=== PATIENT | male | born 1985 | race Caucasian/White ===

== ENCOUNTER 2019-04-23 21:13 | Emergency (ER) | payer OTHER, MEDICAID, SELFPAY ==
[2019-04-23 21:12] VITALS: BMI 22.4
[2019-04-23 21:13] VITALS: BP 115/65; PULSE 77; RESP 18; TEMP 36.1; O2SAT 100
--- NOTE | 2019-04-23 21:31 | ED.PSYCH ---
HPI - Psych <Kenya Titus MD - Last Filed: 05/01/19 03:33> General Chief Complaint: Psychiatric Symptoms Stated Complaint: SI voluntary Time Seen by Provider: 04/23/19 21:18 Source: patient Mode of arrival: ambulatory Limitations: no limitations History of Present Illness HPI Narrative: Patient comes emergency department complaining of feeling suicidal for the past 3 days, due to relationship problems with his girlfriend, among other life stresses. Patient states that he has not attempted suicide this time around, but that he has had a plan, which was to jump [place] overpass, but decided to come here to get help instead. Patient has a history of depression and suicidal attempts previously, and has been admitted to inpatient psychiatric facilities in the past. States most recently, he was admitted down in [place]. Patient states that was last month. Patient denies any hallucinations or homicidal ideation. He states he currently is taking iron and Protonix, as well as Seroquel. No recent dose changes. No recent illnesses. No other complaints at this time. Patient denies use of alcohol or drugs today. He states he used marijuana and beer yesterday, and also chews tobacco. He denies doing any other drugs. Related Data Home Medications Medication Instructions Recorded Confirmed ferrous sulfate [FeroSul] 325 mg PO DAILY 04/24/19 04/24/19 pantoprazole 40 mg PO BID 04/24/19 04/24/19 quetiapine 100 mg PO QPM 04/24/19 04/24/19 Allergies Allergy/AdvReac Type Severity Reaction Status Date / Time No Known Drug Allergies Allergy Verified 04/23/19 21:24 Review of Systems <Kenya Titus MD - Last Filed: 05/01/19 03:33> Review of Systems ROS Unobtainable: All systems reviewed & are unremarkable except as noted in HPI and below Constitutional Constitutional: Denies chills, Denies fatigue, Denies fever(s), Denies frequent falls, Denies lethargy and Denies weakness Eyes Eyes: Denies change in vision, Denies eye discharge, Denies irritation and Denies loss of vision ENT Ears, Nose, Mouth, and Throat: Denies change in voice, Denies dizziness, Denies neck pain, Denies sore throat and Denies throat swelling Cardiovascular Cardiovascular: Denies chest pain, Denies irregular heart rhythm, Denies lightheadedness, Denies palpitations, Denies dyspnea, Denies dyspnea on exertion and Denies orthopnea Respiratory Respiratory: Denies cough, Denies dyspnea, Denies dyspnea on exertion and Denies wheezing Gastrointestinal Gastrointestinal: Denies abdominal pain, Denies change in bowel habits, Denies diarrhea, Denies nausea and Denies vomiting Genitourinary Genitourinary: Denies hematuria, Denies flank pain, Denies urinary incontinence and Denies urinary urgency Musculoskeletal Musculoskeletal: Denies back pain, Denies muscle weakness, Denies neck pain, Denies numbness and Denies tingling Integumentary/Breasts Skin/Breast: Denies pruritus, Denies erythema, Denies rash and Denies wounds Neurologic Neurologic: Denies behavioral changes, Denies confusion, Denies dizziness, Denies frequent falls, Denies loss of vision, Denies numbness, Denies tingling and Denies weakness Psychiatric Psychiatric: Denies anxiety, Denies behavioral changes, Denies confusion, Reports depression, Denies homicidal ideation and Reports suicidal ideation Endocrine Endocrine: Denies fatigue, Denies flushing and Denies palpitations Hematologic/Lymphatic Hematologic/Lymphatic: Denies easy bruising Allergic/Immunologic Allergic/Immunologic: Denies urticaria, Denies throat swelling and Denies wheezing PFSH <Kenya Titus MD - Last Filed: 05/01/19 03:33> Medical History Depression (Acute) Suicide attempt (Acute) Surgical History No pertinent past surgical history (Acute) Social History Smoking Status: Current every day smoker Social History Smoking Status: Current every day smoker Exam <Kenya Titus MD - Last Filed: 05/01/19 03:33> Initial Vital Signs Initial Vital Signs: Vital Signs Temperature 97.0 F L 04/23/19 21:13 Pulse Rate 77 04/23/19 21:13 Respiratory Rate 18 04/23/19 21:13 Blood Pressure 115/65 04/23/19 21:13 Pulse Oximetry 100 04/23/19 21:13 Const General: cooperative and well developed Nutritional Appearance: well nourished Orientation: alert, awake, oriented x3 and not confused [facility] Head: normocephalic and atraumatic Ears: external ears normal Nose: external nose normal and No nasal discharge Face and sinus: face symmetric and No dry mucous membranes Mouth: oral mucosae normal and moist mucous membranes Teeth and gingiva: dentition normal Eyes General: appearance normal, both eyes and all related structures Eyelids: eyelids normal Conjunctivae: conjunctivae normal Sclera: sclerae normal Pupils: PERRL EOM: EOM intact bilaterally Neck Neck: normal visual inspection, trachea midline, No lymphadenopathy, No midline deformity and No JVD Lymphatic: No lymphedema Chest Chest: normal inspection of the chest Resp Effort & Inspection: normal respiratory effort, able to speak in complete sentences, no respiratory distress and no use of accessory muscles Auscultation: clear to auscultation bilaterally, no rales, no rhonchi and no wheezes Cardio Rate: regular rate Rhythm: regular rhythm Heart Sounds: no click, no gallops, no murmurs and no rubs Pulses: normal peripheral pulses GI Inspection: non-distended Palpation: soft, no hepatosplenomegaly, No guarding, No pulsatile mass and No tender Auscultation: normal bowel sounds Back/Spine/Pelvis Back: No CVA tenderness Cervical Spine: cervical ROM normal and No pain with cervical ROM Thoracic/Lumbar Spine: thoracic and lumbar spine normal to inspection Skin General: no rashes or lesions noted, No jaundice and No petechiae Neuro General: alert, oriented x3, gait normal and no focal motor deficits Speech: speech normal Extrem General: full ROM, no clubbing, cyanosis or edema, no pedal edema and no calf tenderness Psych Appearance: well kempt Mental Status: mental status grossly normal Attitude: cooperative Thought Content: normal and suicidality Judgment: judgment good <Ta Segura DO - Last Filed: 04/24/19 16:33> Initial Vital Signs Initial Vital Signs: Vital Signs Temperature 97.0 F L 04/23/19 21:13 Pulse Rate 77 04/23/19 21:13 Respiratory Rate 18 04/23/19 21:13 Blood Pressure 115/65 04/23/19 21:13 Pulse Oximetry 100 04/23/19 21:13 Course <Kenya Titus MD - Last Filed: 05/01/19 03:33> Course Course Narrative: I discussed with the patient that he would need to wait in the emergency department until our social work assistant arrives tomorrow. However, I have initiated the medical clearance labs for the patient, including CBC, CMP, drug screen, alcohol level, and TSH. These were done, and were unremarkable, other than positive drug screen for marijuana. Patient medically clear for mental health evaluation. At this time, he is awaiting arrival of social work assistant for evaluation, as he is voluntary and this not meet criteria to be evaluated by the DCR. The patient will be signed out to Dr. Ta Segura at change of shift, pending social work evaluation and final disposition. Orders Ordered: Discontinued Medications Ferrous Sulfate (Ferrous Sulfate) 325 mg PO NOW ONE Stop: 04/24/19 12:10 Last Admin: 04/24/19 12:28 Dose: 325 mg Documented by: CHARLETTE Lorazepam (Ativan) 1 mg PO NOW ONE Stop: 04/24/19 17:08 Last Admin: 04/24/19 17:10 Dose: 1 mg Documented by: SINGH Pantoprazole Sodium (Protonix) 40 mg PO NOW ONE Stop: 04/24/19 12:16 Last Admin: 04/24/19 12:28 Dose: 40 mg Documented by: CHARLETTE Vital Signs Vital signs: Vital Signs - 8 hr 04/24/19 09:50 04/24/19 13:54 Pulse Rate 84 84 Respiratory Rate 16 16 Blood Pressure [Right Arm] 99/60 115/64 Pulse Oximetry 100 100 <Ta Segura DO - Last Filed: 04/24/19 16:33> Orders Ordered: Discontinued Medications Ferrous Sulfate (Ferrous Sulfate) 325 mg PO NOW ONE Stop: 04/24/19 12:10 Last Admin: 04/24/19 12:28 Dose: 325 mg Documented by: CHARLETTE Lorazepam (Ativan) 1 mg PO NOW ONE Stop: 04/24/19 17:08 Last Admin: 04/24/19 17:10 Dose: 1 mg Documented by: SINGH Pantoprazole Sodium (Protonix) 40 mg PO NOW ONE Stop: 04/24/19 12:16 Last Admin: 04/24/19 12:28 Dose: 40 mg Documented by: CHARLETTE Vital Signs Vital signs: Vital Signs - 8 hr 04/24/19 09:50 04/24/19 13:54 Pulse Rate 84 84 Respiratory Rate 16 16 Blood Pressure [Right Arm] 99/60 115/64 Pulse Oximetry 100 100 MDM - Psych <Kenya Titus MD - Last Filed: 05/01/19 03:33> Medical Records Attestation: I reviewed the patient's medical records. Lab Data Attestation: I reviewed the patient's lab results. Result diagrams: 04/23/19 21:45 04/23/19 21:45 Labs: Lab Results 04/23/19 04/23/19 04/23/19 Range/Units 21:45 21:45 21:45 WBC 9.5 (4.5-11.0) X10^3/uL RBC 4.29 L (4.5-5.9) X10^6/uL Hgb 9.5 L (13.5-17.5) g/dL Hct 29.6 L (41-53) % MCV 68.9 L (80-100) fL MCH 22.0 L (26-34) PG MCHC 32.0 (30-36) % RDW 20.7 H (11.6-14.8) % Plt Count 397 (150-400) X10^3/uL Neut % (Auto) 60.0 (50-75) % Lymph % (Auto) 26.3 (25-40) % Coffee % (Auto) 8.8 (3-14) % Eos % (Auto) 3.5 (2-4) % Baso % (Auto) 1.4 (0-2) % Neut # (Auto) 5700 (8458-1046) /uL Lymph # (Auto) 2500 (7113-2003) /uL Coffee # (Auto) 800 (0-900) /uL Eos # (Auto) 300 (0-450) /uL Baso # (Auto) 100 (0-100) /uL RBC Morphology See below Hypochromasia 1+ H Anisocytosis 3+ H Microcytosis 1+ H Sodium 138 (137-145) mmol/L Potassium 4.3 (3.4-5.1) mmol/L Chloride 103 (98-107) mmol/L Carbon Dioxide 26 (22-32) mmol/L BUN 19 (9-20) mg/dL Creatinine 0.90 (0.66-1.25) mg/dL Estimated GFR > 60.0 (>60) mL/min BUN/Creatinine Ratio 21.1 (6-22) Glucose 93 (70-100) mg/dL Calcium 9.2 (8.4-10.2) mg/dL Total Bilirubin 0.3 (0.2-1.3) mg/dL AST 21 (17-59) IU/L ALT 16 L (21-72) IU/L Alkaline Phosphatase 52 (38-126) U/L Total Protein 6.9 (6.3-8.2) g/dL Albumin 4.0 (3.5-5.0) g/dL Globulin 2.9 (1.7-4.1) g/dL Albumin/Globulin Ratio 1.4 (1.0-2.8) TSH 1.30 (0.47-4.68) uIU/mL Urine Opiates Screen (Negative) Ur Oxycodone Screen (Negative) Urine Methadone Screen (Negative) Ur Barbiturates Screen (Negative) U Tricyclic Antidepress (Negative) Ur Phencyclidine Scrn (Negative) Ur Amphetamines Screen (Negative) U Methamphetamines Scrn (Negative) Ur MDMA Scrn (Ecstasy) (Negative) U Benzodiazepines Scrn (Negative) Urine Cocaine Screen (Negative) U Marijuana (THC) Screen (Negative) Ethyl Alcohol < 10 ( - 10) mg/dL 04/23/19 Range/Units 22:05 WBC (4.5-11.0) X10^3/uL RBC (4.5-5.9) X10^6/uL Hgb (13.5-17.5) g/dL Hct (41-53) % MCV (80-100) fL MCH (26-34) PG MCHC (30-36) % RDW (11.6-14.8) % Plt Count (150-400) X10^3/uL Neut % (Auto) (50-75) % Lymph % (Auto) (25-40) % Coffee % (Auto) (3-14) % Eos % (Auto) (2-4) % Baso % (Auto) (0-2) % Neut # (Auto) (9659-4277) /uL Lymph # (Auto) (1575-6183) /uL Coffee # (Auto) (0-900) /uL Eos # (Auto) (0-450) /uL Baso # (Auto) (0-100) /uL RBC Morphology Hypochromasia Anisocytosis Microcytosis Sodium (137-145) mmol/L Potassium (3.4-5.1) mmol/L Chloride (98-107) mmol/L Carbon Dioxide (22-32) mmol/L BUN (9-20) mg/dL Creatinine (0.66-1.25) mg/dL Estimated GFR (>60) mL/min BUN/Creatinine Ratio (6-22) Glucose (70-100) mg/dL Calcium (8.4-10.2) mg/dL Total Bilirubin (0.2-1.3) mg/dL AST (17-59) IU/L ALT (21-72) IU/L Alkaline Phosphatase (38-126) U/L Total Protein (6.3-8.2) g/dL Albumin (3.5-5.0) g/dL Globulin (1.7-4.1) g/dL Albumin/Globulin Ratio (1.0-2.8) TSH (0.47-4.68) uIU/mL Urine Opiates Screen Negative (Negative) Ur Oxycodone Screen Negative (Negative) Urine Methadone Screen Negative (Negative) Ur Barbiturates Screen Negative (Negative) U Tricyclic Antidepress Negative (Negative) Ur Phencyclidine Scrn Negative (Negative) Ur Amphetamines Screen Negative (Negative) U Methamphetamines Scrn Negative (Negative) Ur MDMA Scrn (Ecstasy) Negative (Negative) U Benzodiazepines Scrn Negative (Negative) Urine Cocaine Screen Negative (Negative) U Marijuana (THC) Screen Positive H (Negative) Ethyl Alcohol ( - 10) mg/dL <Ta Segura, DO - Last Filed: 04/24/19 16:33> Lab Data Labs: Lab Results 04/23/19 04/23/19 04/23/19 Range/Units 21:45 21:45 21:45 WBC 9.5 (4.5-11.0) X10^3/uL RBC 4.29 L (4.5-5.9) X10^6/uL Hgb 9.5 L (13.5-17.5) g/dL Hct 29.6 L (41-53) % MCV 68.9 L (80-100) fL MCH 22.0 L (26-34) PG MCHC 32.0 (30-36) % RDW 20.7 H (11.6-14.8) % Plt Count 397 (150-400) X10^3/uL Neut % (Auto) 60.0 (50-75) % Lymph % (Auto) 26.3 (25-40) % Coffee % (Auto) 8.8 (3-14) % Eos % (Auto) 3.5 (2-4) % Baso % (Auto) 1.4 (0-2) % Neut # (Auto) 5700 (1265-7406) /uL Lymph # (Auto) 2500 (0985-3624) /uL Coffee # (Auto) 800 (0-900) /uL Eos # (Auto) 300 (0-450) /uL Baso # (Auto) 100 (0-100) /uL RBC Morphology See below Hypochromasia 1+ H Anisocytosis 3+ H Microcytosis 1+ H Sodium 138 (137-145) mmol/L Potassium 4.3 (3.4-5.1) mmol/L Chloride 103 (98-107) mmol/L Carbon Dioxide 26 (22-32) mmol/L BUN 19 (9-20) mg/dL Creatinine 0.90 (0.66-1.25) mg/dL Estimated GFR > 60.0 (>60) mL/min BUN/Creatinine Ratio 21.1 (6-22) Glucose 93 (70-100) mg/dL Calcium 9.2 (8.4-10.2) mg/dL Total Bilirubin 0.3 (0.2-1.3) mg/dL AST 21 (17-59) IU/L ALT 16 L (21-72) IU/L Alkaline Phosphatase 52 (38-126) U/L Total Protein 6.9 (6.3-8.2) g/dL Albumin 4.0 (3.5-5.0) g/dL Globulin 2.9 (1.7-4.1) g/dL Albumin/Globulin Ratio 1.4 (1.0-2.8) TSH 1.30 (0.47-4.68) uIU/mL Urine Opiates Screen (Negative) Ur Oxycodone Screen (Negative) Urine Methadone Screen (Negative) Ur Barbiturates Screen (Negative) U Tricyclic Antidepress (Negative) Ur Phencyclidine Scrn (Negative) Ur Amphetamines Screen (Negative) U Methamphetamines Scrn (Negative) Ur MDMA Scrn (Ecstasy) (Negative) U Benzodiazepines Scrn (Negative) Urine Cocaine Screen (Negative) U Marijuana (THC) Screen (Negative) Ethyl Alcohol < 10 ( - 10) mg/dL 04/23/19 Range/Units 22:05 WBC (4.5-11.0) X10^3/uL RBC (4.5-5.9) X10^6/uL Hgb (13.5-17.5) g/dL Hct (41-53) % MCV (80-100) fL MCH (26-34) PG MCHC (30-36) % RDW (11.6-14.8) % Plt Count (150-400) X10^3/uL Neut % (Auto) (50-75) % Lymph % (Auto) (25-40) % Coffee % (Auto) (3-14) % Eos % (Auto) (2-4) % Baso % (Auto) (0-2) % Neut # (Auto) (5870-9954) /uL Lymph # (Auto) (9001-4337) /uL Coffee # (Auto) (0-900) /uL Eos # (Auto) (0-450) /uL Baso # (Auto) (0-100) /uL RBC Morphology Hypochromasia Anisocytosis Microcytosis Sodium (137-145) mmol/L Potassium (3.4-5.1) mmol/L Chloride (98-107) mmol/L Carbon Dioxide (22-32) mmol/L BUN (9-20) mg/dL Creatinine (0.66-1.25) mg/dL Estimated GFR (>60) mL/min BUN/Creatinine Ratio (6-22) Glucose (70-100) mg/dL Calcium (8.4-10.2) mg/dL Total Bilirubin (0.2-1.3) mg/dL AST (17-59) IU/L ALT (21-72) IU/L Alkaline Phosphatase (38-126) U/L Total Protein (6.3-8.2) g/dL Albumin (3.5-5.0) g/dL Globulin (1.7-4.1) g/dL Albumin/Globulin Ratio (1.0-2.8) TSH (0.47-4.68) uIU/mL Urine Opiates Screen Negative (Negative) Ur Oxycodone Screen Negative (Negative) Urine Methadone Screen Negative (Negative) Ur Barbiturates Screen Negative (Negative) U Tricyclic Antidepress Negative (Negative) Ur Phencyclidine Scrn Negative (Negative) Ur Amphetamines Screen Negative (Negative) U Methamphetamines Scrn Negative (Negative) Ur MDMA Scrn (Ecstasy) Negative (Negative) U Benzodiazepines Scrn Negative (Negative) Urine Cocaine Screen Negative (Negative) U Marijuana (THC) Screen Positive H (Negative) Ethyl Alcohol ( - 10) mg/dL MDM Narrative Medical decision making narrative: Received turned over from night provider. Reviewed patient's history and physical and labs. Patient is medically clear. His anemia is not new. Patient is voluntary. He has been calm throughout the day. He has been seen by social work. Patient has been accepted by at [facility]. This was patient's choice facility to go to. Patient is stable for transport. Discharge Plan Departure Patient Disposition: Xfer Psychiatric Hosp Clinical Impression: Depression Discharge Date/Time: 04/24/19 17:51
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
--- NOTE | 2019-04-23 21:44 | PC.NURSE ---
pt laying on bed, door is open to hallway and lights are on.
--- NOTE | 2019-04-23 21:45 | PC.NURSE ---
pt eating pudding.
[2019-04-23 21:54] LABS: Basophils Absolute Auto 100 /uL (0-100); Basophils Percent Auto 1.4 % (0-2); Eosinophils Absolute Auto 300 /uL (0-450); Eosinophils Percent Auto 3.5 % (2-4); Hematocrit 29.6 % (41-53); Hemoglobin 9.5 g/dL (13.5-17.5); Lymphocytes Absolute Auto 2500 /uL (1100-4500); Lymphocytes Percent Auto 26.3 % (25-40); Mean Corpuscular Volume 68.9 fL (80-100); Monocytes Absolute Auto 800 /uL (0-900); Monocytes Percent Auto 8.8 % (3-14); Neutrophils Absolute Auto 5700 /uL (1500-7000); Platelet Count 397 X10^3/uL (150-400); Red Blood Cell Count 4.29 X10^6/uL (4.5-5.9); Red Cell Distribution Width 20.7 % (11.6-14.8); White Blood Cell Count 9.5 X10^3/uL (4.5-11.0)
[2019-04-23 21:55] LABS: Add Manual Diff / Slide Review SLIDE REVIEW
[2019-04-23 22:10] LABS: Alanine Aminotransferase 16 IU/L (21-72); Albumin Globulin Ratio 1.4 (1.0-2.8); Alkaline Phosphatase 52 U/L (38-126); Aspartate Aminotransferase 21 IU/L (17-59); BUN Creatinine Ratio 21.1 (6-22); Bilirubin Total 0.3 mg/dL (0.2-1.3); Blood Urea Nitrogen 19 mg/dL (9-20); Calcium 9.2 mg/dL (8.4-10.2); Carbon Dioxide 26 mmol/L (22-32); Chloride 103 mmol/L (98-107); Estimated Glomerular Filt Rate > 60.0 mL/min (>60); Ethanol (ETOH) < 10 mg/dL; Globulin 2.9 g/dL (1.7-4.1); Glucose 93 mg/dL (70-100); HEMOLYSIS < 15 (0-50); Potassium 4.3 mmol/L (3.4-5.1); Sodium 138 mmol/L (137-145); Total Protein 6.9 g/dL (6.3-8.2)
[2019-04-23 22:12] LABS: Urine Tetrahydrocannabinol Positive (Negative)
[2019-04-23 22:13] LABS: Urine Amphetamines Negative (Negative); Urine Barbiturates Negative (Negative); Urine Benzodiazepines Negative (Negative); Urine Cocaine Negative (Negative); Urine MDMA Negative (Negative); Urine Methadone Negative (Negative); Urine Methamphetamines Negative (Negative); Urine Morphine/Opi cutoff 2000 Negative (Negative); Urine Oxycodone Negative (Negative); Urine Phencyclidine Negative (Negative); Urine Tricyclic Antidepressant Negative (Negative)
[2019-04-23 22:22] LABS: Anisocytosis 3+; Hypochromasia 1+; Microcytosis 1+
--- NOTE | 2019-04-24 01:59 | PC.NURSE ---
Pt is now sleeping, snoring.
--- NOTE | 2019-04-24 02:31 | PC.NURSE ---
PT is asleep. and snoring.
--- NOTE | 2019-04-24 04:35 | PC.NURSE ---
Pt sleeping, resps even/unlabored.
[2019-04-24 06:14] VITALS: BP 93/60; PULSE 84; RESP 17; TEMP 36.5; O2SAT 99
--- NOTE | 2019-04-24 06:16 | PC.NURSE ---
Pt vital signs taken at 0600, woke up and used the urinal.
--- NOTE | 2019-04-24 08:01 | PC.NURSE ---
Pt evaluation...I did not wake pt up as he is sleeping. RR even and unlabored. No apparent distress. Awaiting social work consult.
--- NOTE | 2019-04-24 08:39 | PC.NURSE ---
Breakfast tray brought to patient but has been sleeping so tray not touched as of yet
--- NOTE | 2019-04-24 08:54 | PC.NURSE ---
Patient sitting on bedside eating breakfast and patient given apple and orange juice in addition to his breakfast tray Patient inquired about his belongings and wanted to make sure locked up and labeled, assured him that his belongings were locked and labeled
[2019-04-24 09:50] VITALS: BP 99/60; PULSE 84; RESP 16; O2SAT 100
--- NOTE | 2019-04-24 11:38 | PC.NURSE ---
Patient given lunch tray as well as 2 1/2 egg sandwiches and 2 apple juice
[2019-04-24] MEDS: PANTOPRAZOLE 40 MG TABLET PO (12:28)
[2019-04-24] MEDS: FERROUS SULFATE 325 MG TABLET PO (12:28)
--- NOTE | 2019-04-24 12:36 | PC.NURSE ---
Pt needed to use the restroom so I walked him to the bathroom and asked if he wanted to take a shower. He did so I set him up with towels and shampoo. Pt able to care for himself.
--- NOTE | 2019-04-24 12:57 | PC.NURSE ---
Patient offered a shower and accepted and is currently in showering
[2019-04-24 13:54] VITALS: BP 115/64; PULSE 84; RESP 16; O2SAT 100
--- NOTE | 2019-04-24 14:48 | PC.NURSE ---
Patient laying on bed looking at his cell phone
--- NOTE | 2019-04-24 15:41 | CM.SWNOTE ---
ENGINEERING ASSISTANT Note: Received call from ED staff this AM re: 33yr old male requesting assistance with voluntary placement for suicidal ideation. Met with patient explained ENGINEERING ASSISTANT role. Patient complains of coming to [facility] for help with his suicidal ideation. Patient reports that he has many stressors lately that have contributed to his feelings of hopelessness. Patient and his girlfriend whom resides in [place], recently broke up. Patient reports that they had been together almost 1 year. Patient with h/o suicide attempts, the last being approximately 1 month ago. Patient [place] to [place]. Patient reports that law enforcement was able to talk him out of jumping. At that time patient went to [facility] in [facility]. Patient reports long h/o PTSD and schizophrenia. Patient born with alcohol syndrome. Patient has living parents in [place] and brother and sister in [place]. Patient reports that they are supportive but he does not see much of them. Patient reports that he currently stays from place to place to get by. Patient does not actually to refer to himself as homeless. Patient does report that he wants help and would like to go back to [facility] in [facility]. This ENGINEERING ASSISTANT placed call to both [facility] and [facility] re: bed availability. [facility] did not call back. However, [facility] requested that ENGINEERING ASSISTANT call back around 3:00pm. Returned call at suggested time and spoke with Sheree. Clinical faxed for review. ED staff updated. Per [facility] they will review and call [facility] staff for report if they can accommodate. P: Hopeful that [facility] in [facility] will accept today. SAULO [place]
--- NOTE | 2019-04-24 15:48 | PC.NURSE ---
pt unchanged, he did tell me he feels safe here and if he leaves he feels like he would hurt himself. Needs met.
--- NOTE | 2019-04-24 15:52 | PC.NURSE ---
Offered patient a soda and pudding which he accepted
--- NOTE | 2019-04-24 16:49 | PC.NURSE ---
Brought dinner tray to patient and also gave him a vanilla pudding, apple juice
--- NOTE | 2019-04-24 17:04 | PC.NURSE ---
Patient informed of [facility] arrival to transfer him to [facility], he states feeling a bit anxious and is pacing a bit in the room Very polite and cooperative
[2019-04-24] MEDS: LORazepam 0.5 MG TABLET 1 MG PO (17:10)
--- NOTE | 2019-04-24 17:47 | PC.NURSE ---
Patient's latest vitals 123/86 85 HR 15 RR 100 O2
== END 2019-04-24 17:51 ==
PROVIDERS: Emergency Medicine; Emergency Provider Emergency Medicine
DX: F32.9 Major depressive disorder, single episode, unspecified (principal); R45.851 Suicidal ideations
CPT/HCPCS: 36415; 80053; 80305; 80320; 84443; 85025; 99285

== ENCOUNTER 2021-07-07 12:32 | Emergency (ER) | payer OTHER, MEDICAID, SELFPAY ==
[2021-07-07 12:40] VITALS: BP 129/65; PULSE 78; RESP 14; TEMP 36.6; O2SAT 99
--- NOTE | 2021-07-07 13:11 | PC.NURSE ---
patient cooperative with changing into safety scrubs, removing belongs from room, and having labs drawn and giving urine sample
[2021-07-07 13:30] LABS: Add Manual Diff / Slide Review NO; Basophils Absolute Auto 100 /uL (0-100); Basophils Percent Auto 1.5 % (0-2); Eosinophils Absolute Auto 300 /uL (0-450); Eosinophils Percent Auto 3.9 % (2-4); Hematocrit 25.8 % (41-53); Hemoglobin 8.2 g/dL (13.5-17.5); Lymphocytes Absolute Auto 1600 /uL (1100-4500); Lymphocytes Percent Auto 22.5 % (25-40); Mean Corpuscular HGB Conc 31.9 % (30-36); Mean Corpuscular Hemoglobin 21.9 PG (26-34); Mean Corpuscular Volume 68.5 fL (80-100); Monocytes Absolute Auto 1100 /uL (0-900); Monocytes Percent Auto 15.9 % (3-14); Neutrophils Absolute Auto 4000 /uL (1500-7000); Neutrophils Percent Auto 56.2 % (50-75); Platelet Count 381 X10^3/uL (150-400); Red Blood Cell Count 3.76 X10^6/uL (4.5-5.9); Red Cell Distribution Width 30.7 % (11.6-14.8); White Blood Cell Count 7.2 X10^3/uL (4.5-11.0)
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
[2021-07-07 13:42] LABS: Acetaminophen < 10 ug/mL (10-30); Alanine Aminotransferase 22 IU/L (<50); Albumin 4.4 g/dL (3.5-5.0); Albumin Globulin Ratio 1.6 (1.0-2.8); Alkaline Phosphatase 65 U/L (38-126); Aspartate Aminotransferase 50 IU/L (17-59); BUN Creatinine Ratio 19.1 (6-22); Bilirubin Total 0.6 mg/dL (0.2-1.3); Blood Urea Nitrogen 17 mg/dL (9-20); Calcium 9.2 mg/dL (8.4-10.2); Carbon Dioxide 18 mmol/L (22-32); Chloride 105 mmol/L (98-107); Estimated Glomerular Filt Rate > 60.0 mL/min (>60); Ethanol (ETOH) < 10 mg/dL; Globulin 2.8 g/dL (1.7-4.1); Glucose 77 mg/dL (70-100); HEMOLYSIS < 15 (0-50); Potassium 3.8 mmol/L (3.4-5.1); Salicylate < 1.0 mg/dL (<20); Sodium 135 mmol/L (137-145); Total Protein 7.2 g/dL (6.3-8.2)
--- NOTE | 2021-07-07 13:43 | PC.NURSE ---
patient got up to turn off light, then got back in the bed and appears to be sleeping
[2021-07-07 13:49] LABS: Anisocytosis 3+
[2021-07-07 13:50] LABS: Hypochromasia 2+; Microcytosis 2+; Poikilocytosis 1+; Target Cells 1+
--- NOTE | 2021-07-07 14:02 | PC.NURSE ---
patient sat up in bed to reposition self, patient then accidentally flung self out of bed and on to the floor
[2021-07-07 14:07] LABS: Ur Creatinine Normal (Normal); Ur Specific Gravity Normal (Normal); Urine pH Normal (Normal)
[2021-07-07 14:07] LABS: Free T4, Direct Thyroxine 1.65 ng/dL (0.78-2.19)
[2021-07-07 14:08] LABS: UR Morphine/Opiate cutoff 300 Negative (Negative); Urine Amphetamines Positive (Negative); Urine Barbiturates Negative (Negative); Urine Benzodiazepines Negative (Negative); Urine Cocaine Negative (Negative); Urine MDMA Negative (Negative); Urine Methadone Negative (Negative); Urine Methamphetamines Positive (Negative); Urine Oxycodone Negative (Negative); Urine Phencyclidine Negative (Negative); Urine Tetrahydrocannabinol Positive (Negative); Urine Tricyclic Antidepressant Negative (Negative)
[2021-07-07 14:10] LABS: Bacteria Urine None Seen; RBC Urine None Seen (0-5/HPF); Urine Comments Microscopic Normal; WBC Urine None Seen (0-5/HPF)
[2021-07-07 14:11] LABS: Culture Indicated Urine Cult Not Indicated
--- NOTE | 2021-07-07 14:14 | PC.NURSE ---
patient pointing and claiming to see a dancing janet
--- NOTE | 2021-07-07 14:17 | PC.NURSE ---
patient continues to lay in bed, often yelling out or talking to self. Patient yelling I said no.
[2021-07-07] MEDS: LORazepam 0.5 MG TABLET 1 MG PO (14:20)
--- NOTE | 2021-07-07 14:20 | PC.NURSE ---
patient walked quickly out of room to this INSPECTOR AIDE as well as patients RN saying hey girls do you want to go to the [facility]? patient given medication by RN and went back to bed
[2021-07-07 14:21] LABS: Thyroid Stimulating Hormone 2.51 uIU/mL (0.47-4.68)
--- NOTE | 2021-07-07 14:33 | PC.NURSE ---
Patient received EKG by respiratory therapy. While having stickers placed, patient asks if he was going to be shocked and then mimics being shocked, flailing in bed and making buzzing noise. Patient seems to get annoyed that the test takes more time than anticipated, but calms down quickly.
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
--- NOTE | 2021-07-07 14:38 | PC.NURSE ---
Patient continues to talk to self, occasionally with loud exclamations, such as boom and other sound effects.
[2021-07-07 14:48] LABS: COVID19 -Nasal RAPID Negative (Negative)
--- NOTE | 2021-07-07 14:48 | PC.NURSE ---
patient yelling in room you got one more chance or it's to the fucking [facility]
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
--- NOTE | 2021-07-07 16:26 | CM.SWNOTE ---
Addendum entered by Xenia Bowers 07/07/21 17:22: OUTDOOR EMERGENCY CARE TECHNICIAN Note OUTDOOR EMERGENCY CARE TECHNICIAN receives call from [facility], it is reported that patient is accepted at [facility] with an arrival time of 2100. Accept[address] provider [address] Dr. Shreyas Pablo. Nurse to Nurse # [phone] SAULO Leo Addendum entered by Xenia Bowers 07/07/21 16:44: OUTDOOR EMERGENCY CARE TECHNICIAN calls [facility] intake and leaves and faxes referral for review. Original Note: OUTDOOR EMERGENCY CARE TECHNICIAN Note OUTDOOR EMERGENCY CARE TECHNICIAN calls [facility] for bed census. OUTDOOR EMERGENCY CARE TECHNICIAN calls [facility] , it is reported that they do not have any male co-occuring beds at this time and it is unknown when they will have openings. OUTDOOR EMERGENCY CARE TECHNICIAN calls [facility] , it is reported that they have beds and can review patient. OUTDOOR EMERGENCY CARE TECHNICIAN calls [facility], it is reported that they can review patient but they only have one bed. It is reported that [facility] called ED and reports that they cannot take patient because patient is a level 3 registered sex offender in [place] and they have minors at their facility. OUTDOOR EMERGENCY CARE TECHNICIAN calls [facility], it is reported that they do not accept dual dx patients. OUTDOOR EMERGENCY CARE TECHNICIAN calls [facility] it is reported that they may have beds but due to the current road conditions on [address] it may be difficult for patient to get to facility. OUTDOOR EMERGENCY CARE TECHNICIAN to f/u with road conditions. OUTDOOR EMERGENCY CARE TECHNICIAN calls [facility] and it is reported that they can review patient with phone intake. OUTDOOR EMERGENCY CARE TECHNICIAN to bring phone to patient for intake screening. Patient is currently sleeping. Plan: OUTDOOR EMERGENCY CARE TECHNICIAN to continue to seek voluntary inpatient bed or crisis stabilization bed for patient. ASULO Leo
[2021-07-07 19:14] VITALS: BP 90/53; PULSE 80; RESP 18; TEMP 36.8; O2SAT 99
== END 2021-07-07 19:35 ==
PROVIDERS: Emergency Provider Emergency Medicine
DX: R45.851 Suicidal ideations (principal); F15.10 Other stimulant abuse, uncomplicated; F41.9 Anxiety disorder, unspecified; Z20.822 Contact with and (suspected) exposure to COVID-19
CPT/HCPCS: 36415; 80053; 80305; 80320; 80329; 81003; 81015; 84439; 84443; 85025; 87635; 93005; 99284; C9803; G0480

== ENCOUNTER 2021-08-02 14:16 | Emergency (ER) | payer OTHER, MEDICAID, SELFPAY ==
[2021-08-02 14:31] VITALS: BP 122/69; PULSE 102; RESP 18; TEMP 36.4; O2SAT 100; BMI 19.1
[2021-08-02 15:23] LABS: Ur Creatinine Normal (Normal); Ur Specific Gravity Normal (Normal); Urine pH Normal (Normal)
[2021-08-02 15:24] LABS: UR Morphine/Opiate cutoff 300 Negative (Negative); Urine Amphetamines Negative (Negative); Urine Cocaine Negative (Negative); Urine Tetrahydrocannabinol Negative (Negative)
[2021-08-02 15:25] LABS: Urine Barbiturates Negative (Negative); Urine Benzodiazepines Negative (Negative); Urine MDMA Negative (Negative); Urine Methadone Negative (Negative); Urine Methamphetamines Positive (Negative); Urine Oxycodone Negative (Negative); Urine Phencyclidine Negative (Negative); Urine Tricyclic Antidepressant Negative (Negative)
[2021-08-02 15:45] LABS: Bacteria Urine None Seen; Culture Indicated Urine Specimen Cultured; RBC Urine None Seen (0-5/HPF); WBC Urine 5-10/HPF (0-5/HPF)
--- NOTE | 2021-08-02 17:36 | ED.PSYCH ---
HPI - Psych <ASHISH Kim - Last Filed: 08/02/21 20:14> General Chief Complaint: Psychiatric Symptoms Stated Complaint: SI Time Seen by Provider: 08/02/21 17:36 Source: patient Mode of arrival: Ambulatory History of Present Illness HPI Narrative: 35-year-old male presents to emergency department complaining that his girlfriend in him fighting and he is feeling suicidal. He reports he wants to jump off of an overpass. He reports having suicidal ideation in the past with the same. He also has a history of depression and is not currently on medication. He has been to inpatient psych treatment 3 times previously and is hoping to get somewhere for treatment. Reports using meth recently approximately 1 week ago and he has not been using it recently he states. He reports that he also does use marijuana and his last use was this morning. He currently has suicide ideation. He denies any audiovisual hallucinations, he denies homicidal ideation. Comes to the emergency department today voluntarily seeking assistance and states he is very concerned about his suicidal ideation and that may act on them. He plans on jumping [place] of a bridge [place] the [place]. On chart review it appears that patient was discharged from [facility] this morning after seen Psychiatry who determined the patient was safe to discharge home without any active SI. There were questions in some of his previous charts about malingering, he has had multiple presentations to various ERs in the [facility] and in [place] with the same complaint. He was questioned about this and patient denies remembering that he was at [facility] or that he saw psychiatry. Patient does not have any hallucinations at this time, does not appear intoxicated, he is requesting a warm place to stay tonight, if he can just have a bed for the night that all he wants. Related Data Home Medications Medication Instructions Recorded Confirmed ferrous sulfate 325 mg (65 mg 325 mg PO DAILY 04/24/19 04/24/19 iron) tablet (FeroSul) pantoprazole 40 mg tablet,delayed 40 mg PO BID 04/24/19 04/24/19 release quetiapine 100 mg tablet 100 mg PO QPM 04/24/19 04/24/19 Allergies Allergy/AdvReac Type Severity Reaction Status Date / Time No Known Drug Allergies Allergy Verified 08/02/21 14:36 Review of Systems <ASHISH Kim - Last Filed: 08/02/21 20:14> Review of Systems Narrative: Const General: cooperative, disheveled and No ill appearing Limitations: mental status not altered HENMT Head: normal to inspection and normocephalic Missing most of his teeth Eyes General: appearance normal, both eyes and all related structures Resp Effort & Inspection: normal respiratory effort Auscultation: clear to auscultation bilaterally Cardio Rate: regular rate Rhythm: regular rhythm GI Inspection: normal to inspection Skin Lesions: no lesions Rashes: no rashes Neuro General: patient alert, patient awake, patient oriented x3 and moves all extremities Extrem General: normal to inspection, capillary refill normal and No edema Psych Appearance: grossly normal and disheveled Patient History <ASHISH Kim - Last Filed: 08/02/21 20:14> Medical History Anxiety Depression Depression Methamphetamine abuse Suicide attempt Surgical History No pertinent past surgical history Social History Smoking Status: Current every day smoker Smoking Status: Current every day smoker tobacco type: smokeless tobacco alcohol intake frequency: 0-2 drinks per day Substance Use Type: marijuana, amphetamines and methamphetamine Exam <ASHISH Kim - Last Filed: 08/02/21 20:14> Narrative Exam Narrative: Independently reviewed vitals signs and nursing notes. General: Awake, alert, pleasant, nontoxic, no cardiorespiratory distress, reports feeling anxious Head/Neck: Atraumatic, neck full range of motion Eyes: EOMI, conjunctiva normal Nose: nares patent, no rhinorrhea Mouth/Throat: moist mucus membranes, missing numerous teeth, no oral lesions Cardio: Regular rate and rhythm, no peripheral edema Respiratory: respirations unlabored without wheezing, stridor, or rales. No retractions. GI: Abdomen soft, nontender MSK: Moves all extremities, neurovascularly intact Skin: Normal capillary refill, no rash Neuro: Normal speech and cognition, normal gait Psych: Patient reports he does have suicidal ideation with a plan, he is pleasant, cooperative, denies memory of seeing a psychiatrist earlier today at 11:30 a.m., as well as being at the hospital and having a full workup for his suicidal ideation. He does not any audiovisual hallucinations. Initial Vital Signs Initial Vital Signs: Vital Signs Temperature 97.5 F L 08/02/21 14:31 Pulse Rate 102 H 08/02/21 14:31 Respiratory Rate 18 08/02/21 14:31 Blood Pressure 122/69 08/02/21 14:31 Pulse Oximetry 100 08/02/21 14:31 Course <ASHISH Kim - Last Filed: 08/02/21 20:14> Orders Ordered: Discontinued Medications Lorazepam (Lorazepam 0.5 Mg Tablet) 1 mg PO NOW ONE Stop: 08/02/21 17:45 Last Admin: 08/02/21 18:05 Dose: 1 mg Documented by: ANUP Vital Signs Vital signs: Vital Signs - 8 hr 08/02/21 14:31 08/02/21 19:37 Temperature 97.5 F L Pulse Rate 102 H 92 H Respiratory Rate 18 Blood Pressure 122/69 106/59 L Pulse Oximetry 100 98 MDM - Psych <ASHISH Kim - Last Filed: 08/02/21 20:14> Lab Data Result diagrams: 08/02/21 17:20 08/02/21 17:20 Labs: Lab Results 08/02/21 08/02/21 08/02/21 Range/Units 14:54 14:54 17:20 WBC 11.9 H (4.5-11.0) X10^3/uL RBC 4.29 L (4.5-5.9) X10^6/uL Hgb 8.7 L (13.5-17.5) g/dL Hct 27.9 L (41-53) % MCV 65.2 L (80-100) fL MCH 20.2 L (26-34) PG MCHC 31.0 (30-36) % RDW 25.0 H (11.6-14.8) % Plt Count 455 H (150-400) X10^3/uL Neut % (Auto) Not Reportable Lymph % (Auto) Not Reportable [place] % (Auto) Not Reportable Eos % (Auto) Not Reportable Baso % (Auto) Not Reportable Lymph # (Auto) Not Reportable [place] # (Auto) Not Reportable Baso # (Auto) Not Reportable Total Counted 100 Seg Neutrophils % 66.0 (38-70) % Lymphocytes % (Manual) 15.0 L (25-45) % Monocytes % (Manual) 14.0 H (2-11) % Eosinophils % (Manual) 2.0 (2-4) % Basophils % (Manual) 3.0 H (0-1) % Neutrophils # (Manual) 7854 H (0131-1118) /uL Smudge Cells 1+ H RBC Morphology See below Hypochromasia 2+ H Poikilocytosis 2+ H Anisocytosis 3+ H Target Cells 1+ H Ovalocytes 1+ H Sodium (137-145) mmol/L Potassium (3.4-5.1) mmol/L Chloride (98-107) mmol/L Carbon Dioxide (22-32) mmol/L BUN (9-20) mg/dL Creatinine (0.66-1.25) mg/dL Estimated GFR (>60) mL/min BUN/Creatinine Ratio (6-22) Glucose (70-100) mg/dL Calcium (8.4-10.2) mg/dL Total Bilirubin (0.2-1.3) mg/dL AST (17-59) IU/L ALT (<50) IU/L Alkaline Phosphatase (38-126) U/L Total Protein (6.3-8.2) g/dL Albumin (3.5-5.0) g/dL Globulin (1.7-4.1) g/dL Albumin/Globulin Ratio (1.0-2.8) TSH (0.47-4.68) uIU/mL Free T4 (0.78-2.19) ng/dL Urine RBC None seen (0-5/HPF) Urine WBC 5-10/hpf H (0-5/HPF) Urine Bacteria None seen (None) Ur Culture Indicated? Specimen cultured Salicylates (<20) mg/dL U Opiates 300ng/mL cut Negative (Negative) Ur Oxycodone Screen Negative (Negative) Urine Methadone Screen Negative (Negative) Acetaminophen (10-30) ug/mL Ur Barbiturates Screen Negative (Negative) U Tricyclic Antidepress Negative (Negative) Ur Phencyclidine Scrn Negative (Negative) Ur Amphetamines Screen Negative (Negative) U Methamphetamines Scrn Positive H (Negative) Ur MDMA Scrn (Ecstasy) Negative (Negative) U Benzodiazepines Scrn Negative (Negative) Urine Cocaine Screen Negative (Negative) U Marijuana (THC) Screen Negative (Negative) Ethyl Alcohol ( - 10) mg/dL SARS-CoV-2 (PCR) (Negative) 08/02/21 08/02/21 08/02/21 Range/Units 17:20 17:20 18:13 WBC (4.5-11.0) X10^3/uL RBC (4.5-5.9) X10^6/uL Hgb (13.5-17.5) g/dL Hct (41-53) % MCV (80-100) fL MCH (26-34) PG MCHC (30-36) % RDW (11.6-14.8) % Plt Count (150-400) X10^3/uL Neut % (Auto) Lymph % (Auto) [place] % (Auto) Eos % (Auto) Baso % (Auto) Lymph # (Auto) [place] # (Auto) Baso # (Auto) Total Counted Seg Neutrophils % (38-70) % Lymphocytes % (Manual) (25-45) % Monocytes % (Manual) (2-11) % Eosinophils % (Manual) (2-4) % Basophils % (Manual) (0-1) % Neutrophils # (Manual) (3642-6042) /uL Smudge Cells RBC Morphology Hypochromasia Poikilocytosis Anisocytosis Target Cells Ovalocytes Sodium 137 (137-145) mmol/L Potassium 3.9 (3.4-5.1) mmol/L Chloride 104 (98-107) mmol/L Carbon Dioxide 23 (22-32) mmol/L BUN 18 (9-20) mg/dL Creatinine 0.75 (0.66-1.25) mg/dL Estimated GFR > 60.0 (>60) mL/min BUN/Creatinine Ratio 24.0 H (6-22) Glucose 154 H (70-100) mg/dL Calcium 9.0 (8.4-10.2) mg/dL Total Bilirubin 0.1 L (0.2-1.3) mg/dL AST 18 (17-59) IU/L ALT 15 (<50) IU/L Alkaline Phosphatase 57 (38-126) U/L Total Protein 7.0 (6.3-8.2) g/dL Albumin 3.9 (3.5-5.0) g/dL Globulin 3.1 (1.7-4.1) g/dL Albumin/Globulin Ratio 1.3 (1.0-2.8) TSH 0.855 (0.47-4.68) uIU/mL Free T4 1.21 (0.78-2.19) ng/dL Urine RBC (0-5/HPF) Urine WBC (0-5/HPF) Urine Bacteria (None) Ur Culture Indicated? Salicylates < 1.0 (<20) mg/dL U Opiates 300ng/mL cut (Negative) Ur Oxycodone Screen (Negative) Urine Methadone Screen (Negative) Acetaminophen < 10 L (10-30) ug/mL Ur Barbiturates Screen (Negative) U Tricyclic Antidepress (Negative) Ur Phencyclidine Scrn (Negative) Ur Amphetamines Screen (Negative) U Methamphetamines Scrn (Negative) Ur MDMA Scrn (Ecstasy) (Negative) U Benzodiazepines Scrn (Negative) Urine Cocaine Screen (Negative) U Marijuana (THC) Screen (Negative) Ethyl Alcohol < 10 ( - 10) mg/dL SARS-CoV-2 (PCR) Negative (Negative) Urine Dip Bedside Urine Glucose Negative Bedside Urine Bilirubin - Negative Bedside Urine Ketone - Negative Urine Specific [place] 1.025 Bedside Urine Occult Blood - Negative Bedside Urine pH 6.0 Bedside Urine Protein + 30 Bedside Urine Urobilinogen 0.2 Bedside Urine Nitrite - Negative Bedside Urine Leukocytes - Negative Esterase MDM Narrative Medical decision making narrative: 35-year-old male presented to the emergency department after being discharged [facility] who was admitted overnight to see Psychiatry this morning who ultimately decided the patient was safe to discharge without requiring admission to inpatient psych for safety. When discussing this at great length with patient, patient reports that he does not have anywhere to sleepy, but he is here to stay for the night if he can, otherwise he needs a ride to [facility] for a safe place to stay tonight. After completing a medical screening exam and determined the patient is clear for admission, an attempt was made to secure a bed for patient is [facility] however they declined him as they had already had a request for him this morning, and the psychiatrist discharged him from the hospital. This was discussed with the patient who reports he is not actively suicidal, he has a history of feeling suicidal, and he did not know where else to go so he came to the hospital to hopefully stay for the night. Patient reports that he feels safe to discharge to [facility] where he has a safe place to stay. I agreed to let him do this, he was calm, cooperative, and understanding on why we were unable to secure him a bed. Please see prior notes from surrounding facilities who has seen the patient over the last few days. He has multiple visits to multiple ERs with the same complaint. Patient is appropriate and amenable to discharge home. Vital signs are stable on repeat examination is unremarkable. Patient has been informed of results. Patient has been given strict return to ER precautions for any new or worsening symptoms. Patient understands to follow up closely with outpatient providers as instructed. Patient understands plan and agrees to discharge home. All questions and concerns answered at this time. Discharge Plan Departure Patient Disposition: Home Clinical Impression: Depression, Suicidal ideation Instructions: DI for Suicidal Ideation-Adult Activity Restrictions/Additional Instructions: *You have been diagnosed with suicidal ideation. I am sorry that you feel this way, I am glad that your reaching out for help, unfortunately because of your psychiatry evaluation this morning we are unable to find you of bed as an inpatient in a psych facility. I encourage you to use the resources that have been given to over the last few visits. Please try to find ways to make yourself happy, avoid drug use, and work on finding a safe place for you to stay. I wish you the best, please stay safe, if you are in danger please call 911 or present to the emergency room. *What to do: *Please continue to take your regular medications as directed. [ ] New medication prescriptions sent to your pharmacy: [ ] [ ] New medication written as a paper prescription [ ] No new medications given *Please follow up with your primary care provider in 2-3 days, call for an appointment. Let them know you were seen in the Emergency Department and that we ask that you be seen in follow up. We will electronically transmit a record of today's note if your PCP is in our system *If you do not have a primary care provider please contact the [facility] Resource line at [phone]. They will ask some questions about your medical history and help get you set up with a doctor in the community. *Return to Emergency Department if you should have any new, worsening or concerning symptoms, such as [fever greater than 101F, chills, worsening pain, persistent vomiting or other bothersome symptoms] Prescriptions: No Action quetiapine 100 mg Tablet 100 mg PO QPM 0RF pantoprazole 40 mg Tablet,Delayed Release (Dr/Ec) 40 mg PO BID 0RF ferrous sulfate [FeroSul] 325 mg (65 mg iron) Tablet 325 mg PO DAILY 0RF
[2021-08-02 17:41] LABS: Acetaminophen < 10 ug/mL (10-30); Alanine Aminotransferase 15 IU/L (<50); Albumin 3.9 g/dL (3.5-5.0); Albumin Globulin Ratio 1.3 (1.0-2.8); Alkaline Phosphatase 57 U/L (38-126); Aspartate Aminotransferase 18 IU/L (17-59); Bilirubin Total 0.1 mg/dL (0.2-1.3); Blood Urea Nitrogen 18 mg/dL (9-20); Carbon Dioxide 23 mmol/L (22-32); Chloride 104 mmol/L (98-107); Estimated Glomerular Filt Rate > 60.0 mL/min (>60); Ethanol (ETOH) < 10 mg/dL; Globulin 3.1 g/dL (1.7-4.1); Glucose 154 mg/dL (70-100); HEMOLYSIS < 15 (0-50); Potassium 3.9 mmol/L (3.4-5.1); Salicylate < 1.0 mg/dL (<20); Sodium 137 mmol/L (137-145)
[2021-08-02 17:58] LABS: Hematocrit 27.9 % (41-53); Hemoglobin 8.7 g/dL (13.5-17.5); Mean Corpuscular Hemoglobin 20.2 PG (26-34); Mean Corpuscular Volume 65.2 fL (80-100); Platelet Count 455 X10^3/uL (150-400); Red Blood Cell Count 4.29 X10^6/uL (4.5-5.9); White Blood Cell Count 11.9 X10^3/uL (4.5-11.0)
[2021-08-02 17:59] LABS: Add Manual Diff / Slide Review YES
[2021-08-02] MEDS: LORazepam 0.5 MG TABLET 1 MG PO (18:05)
[2021-08-02 18:08] LABS: Free T4, Direct Thyroxine 1.21 ng/dL (0.78-2.19)
[2021-08-02 18:22] LABS: Thyroid Stimulating Hormone 0.855 uIU/mL (0.47-4.68)
[2021-08-02 18:38] LABS: COVID19 -Nasal RAPID Negative (Negative)
[2021-08-02 18:45] LABS: Neutrophils Absolute Manual 7854 /uL (3000-5900); Total Cells Counted 100
[2021-08-02 18:47] LABS: Smudge Cells 1+
[2021-08-02 18:48] LABS: Anisocytosis 3+; Hypochromasia 2+; Poikilocytosis 2+
[2021-08-02 18:49] LABS: Ovalocytes 1+; Target Cells 1+
[2021-08-02 19:37] VITALS: BP 106/59; PULSE 92; O2SAT 98
== END 2021-08-02 19:46 | disposition home or self-care (01) ==
PROVIDERS: Emergency Medicine; Emergency Provider Nurse Practitioner Critical Care Medicine
DX: R45.851 Suicidal ideations (principal); F32.A Depression, unspecified; Z20.822 Contact with and (suspected) exposure to COVID-19
CPT/HCPCS: 36415; 80053; 80305; 80320; 80329; 81003; 81015; 84439; 84443; 85007; 85025; 87086; 87635; 99283; C9803; G0480

== ENCOUNTER 2021-09-15 12:40 | Emergency (ER) | payer OTHER, MEDICAID, SELFPAY ==
[2021-09-15 13:01] VITALS: BP 116/57; PULSE 88; RESP 24; TEMP 36.7; O2SAT 100
--- NOTE | 2021-09-15 13:50 | PC.NURSE ---
Pt changed into green scrubs. All pt's belongings including his phone and wallet are put into locker #5 and 6
[2021-09-15 14:18] LABS: UR Morphine/Opiate cutoff 300 Negative (Negative); Ur Creatinine Normal (Normal); Ur Specific Gravity Normal (Normal); Urine Amphetamines Positive (Negative); Urine Barbiturates Negative (Negative); Urine Benzodiazepines Negative (Negative); Urine Cocaine Negative (Negative); Urine MDMA Negative (Negative); Urine Methadone Negative (Negative); Urine Methamphetamines Positive (Negative); Urine Oxycodone Negative (Negative); Urine Phencyclidine Negative (Negative); Urine Tetrahydrocannabinol Negative (Negative); Urine Tricyclic Antidepressant Negative (Negative); Urine pH Normal (Normal)
[2021-09-15 14:24] LABS: Acetaminophen < 10 ug/mL (10-30); Alanine Aminotransferase 17 IU/L (<50); Albumin Globulin Ratio 1.4 (1.0-2.8); Alkaline Phosphatase 63 U/L (38-126); Aspartate Aminotransferase 30 IU/L (17-59); BUN Creatinine Ratio 16.9 (6-22); Bilirubin Total 0.2 mg/dL (0.2-1.3); Blood Urea Nitrogen 12 mg/dL (9-20); Calcium 9.2 mg/dL (8.4-10.2); Carbon Dioxide 24 mmol/L (22-32); Chloride 105 mmol/L (98-107); Estimated Glomerular Filt Rate > 60.0 mL/min (>60); Ethanol (ETOH) < 10 mg/dL; Globulin 2.9 g/dL (1.7-4.1); Glucose 135 mg/dL (70-100); HEMOLYSIS < 15 (0-50); Potassium 3.8 mmol/L (3.4-5.1); Salicylate < 1.0 mg/dL (<20); Sodium 137 mmol/L (137-145); Total Protein 6.9 g/dL (6.3-8.2)
--- NOTE | 2021-09-15 14:24 | PC.NURSE ---
belongings locked in patient locker. Clothes given to housekeeping to clean as they were soiled and soaked.
[2021-09-15 14:25] LABS: COVID19 -Nasal RAPID Negative (Negative)
--- NOTE | 2021-09-15 14:25 | PC.NURSE ---
Pt took a shower and brushed his teeth. Ambulated well to the bathroom and back.
[2021-09-15 14:27] LABS: Add Manual Diff / Slide Review NO; Basophils Absolute Auto 100 /uL (0-100); Basophils Percent Auto 1.1 % (0-2); Eosinophils Absolute Auto 300 /uL (0-450); Eosinophils Percent Auto 3.5 % (2-4); Hematocrit 27.9 % (41-53); Hemoglobin 8.8 g/dL (13.5-17.5); Lymphocytes Absolute Auto 3100 /uL (1100-4500); Mean Corpuscular HGB Conc 31.7 % (30-36); Mean Corpuscular Volume 59.8 fL (80-100); Monocytes Absolute Auto 600 /uL (0-900); Monocytes Percent Auto 6.5 % (3-14); Neutrophils Absolute Auto 4500 /uL (1500-7000); Neutrophils Percent Auto 52.9 % (50-75); Platelet Count 416 X10^3/uL (150-400); Red Blood Cell Count 4.66 X10^6/uL (4.5-5.9); Red Cell Distribution Width 20.7 % (11.6-14.8); White Blood Cell Count 8.6 X10^3/uL (4.5-11.0)
--- NOTE | 2021-09-15 14:58 | ED_ITS ---
HPI - Psych General Chief Complaint: Psychiatric Symptoms Stated Complaint: SI/Hasn't Slept in 5 Days Time Seen by Provider: 09/15/21 13:59 Source: patient Mode of arrival: Ambulatory History of Present Illness HPI Narrative: Patient is a 35-year-old male with history of methamphetamine abuse with concurrence amphetamine abuse, schizophrenia, bipolar presenting today with suicidal ideations. He presents voluntarily requesting placement. States that he would jump off a bridge. He was actually seen evaluated in [facility] yesterday he was evaluated by the crisis team that time was released no beds were available and he is very difficult to place due to his history of being a sex offender. Patient is also homeless requesting food. Related Data Home Medications Medication Instructions Recorded Confirmed ferrous sulfate 325 mg (65 mg 325 mg PO DAILY 04/24/19 04/24/19 iron) tablet (FeroSul) pantoprazole 40 mg tablet,delayed 40 mg PO BID 04/24/19 04/24/19 release quetiapine 100 mg tablet 100 mg PO QPM 04/24/19 04/24/19 Allergies Allergy/AdvReac Type Severity Reaction Status Date / Time No Known Drug Allergies Allergy Verified 08/02/21 14:36 Review of Systems Review of Systems Narrative: GENERAL: Denies chills,fever HEENT: Denies throat pain RESPIRATORY: Denies dyspnea, cough, wheezing CARDIOVASCULAR: Denies chest pain, palpitations GASTROINTESTINAL: Denies nausea, vomiting MUSCULOSKELETAL: Denies extremity pain, injury SKIN: No rash, no laceration, no pruritus NEUROLOGIC: Denies weakness, dizziness, headache, numbness 8 point review of systems is negative except for those stated above and HPI Psychiatric Psychiatric: Reports as per HPI, Reports paranoia and Reports suicidal ideation Patient History Medical History Anxiety Depression Depression Methamphetamine abuse Suicide attempt Surgical History No pertinent past surgical history Social History Smoking Status: Current every day smoker Smoking Status: Current every day smoker tobacco type: smokeless tobacco alcohol intake frequency: 0-2 drinks per day Substance Use Type: marijuana, amphetamines and methamphetamine Exam Initial Vital Signs Initial Vital Signs: Vital Signs Temperature 98.0 F 09/15/21 13:01 Pulse Rate 88 09/15/21 13:01 Respiratory Rate 24 09/15/21 13:01 Blood Pressure 116/57 L 09/15/21 13:01 Pulse Oximetry 100 09/15/21 13:01 GENERAL: Sleeping but arousable, discharge able CARDIOVASCULAR: peripheral pulses in tact, cap refill <2 sec RESPIRATORY: No respiratory distress, speaks in full sentences without difficulty EXTREMITIES: Normal range of motion, no clubbing or edema. Neurovascularly intact NEUROLOGICAL: Cranial nerves II through XII grossly intact. Normal gait and speech. SKIN: Warm, dry, no petechiae, no rashes or lesions. Psych Appearance: disheveled Speech and Movement: agitated Attitude: cooperative Judgment: fair Course Orders Ordered: ED Orders 09/15/21 13:09 Consult to RECREATION COUNSELOR - Helicopter Repairer Stat 09/15/21 13:52 Acetaminophen Stat Complete Blood Count AUTO DIFF Stat Comprehensive Metabolic Panel Stat Ethanol (ETOH) Stat Free T4, Direct Thyroxine Stat Salicylate Stat Thyroid Stimulating Hormone Stat 09/15/21 14:00 COVID19 -Nasal swab/Pre-Proc Stat Urine Drug Screen, Rapid Stat Vital Signs Vital signs: Vital Signs - 8 hr 09/15/21 13:01 Temperature 98.0 F Pulse Rate 88 Respiratory Rate 24 Blood Pressure 116/57 L Pulse Oximetry 100 MDM - Psych Lab Data Result diagrams: 09/15/21 13:52 09/15/21 13:52 Labs: Lab Results 09/15/21 09/15/21 09/15/21 Range/Units 13:52 13:52 13:52 WBC 8.6 (4.5-11.0) X10^3/uL RBC 4.66 (4.5-5.9) X10^6/uL Hgb 8.8 L (13.5-17.5) g/dL Hct 27.9 L (41-53) % MCV 59.8 L (80-100) fL MCH 19.0 L (26-34) PG MCHC 31.7 (30-36) % RDW 20.7 H (11.6-14.8) % Plt Count 416 H (150-400) X10^3/uL Neut % (Auto) 52.9 (50-75) % Lymph % (Auto) 36.0 (25-40) % [place] % (Auto) 6.5 (3-14) % Eos % (Auto) 3.5 (2-4) % Baso % (Auto) 1.1 (0-2) % Neut # (Auto) 4500 (7665-4806) /uL Lymph # (Auto) 3100 (1549-8080) /uL [place] # (Auto) 600 (0-900) /uL Eos # (Auto) 300 (0-450) /uL Baso # (Auto) 100 (0-100) /uL RBC Morphology See below Hypochromasia 2+ H Poikilocytosis 2+ H Microcytosis 3+ H Target Cells 1+ H Schistocytes 2+ H Sodium 137 (137-145) mmol/L Potassium 3.8 (3.4-5.1) mmol/L Chloride 105 (98-107) mmol/L Carbon Dioxide 24 (22-32) mmol/L BUN 12 (9-20) mg/dL Creatinine 0.71 (0.66-1.25) mg/dL Estimated GFR > 60.0 (>60) mL/min BUN/Creatinine Ratio 16.9 (6-22) Glucose 135 H (70-100) mg/dL Calcium 9.2 (8.4-10.2) mg/dL Total Bilirubin 0.2 (0.2-1.3) mg/dL AST 30 (17-59) IU/L ALT 17 (<50) IU/L Alkaline Phosphatase 63 (38-126) U/L Total Protein 6.9 (6.3-8.2) g/dL Albumin 4.0 (3.5-5.0) g/dL Globulin 2.9 (1.7-4.1) g/dL Albumin/Globulin Ratio 1.4 (1.0-2.8) TSH 1.23 (0.47-4.68) uIU/mL Free T4 1.34 (0.78-2.19) ng/dL Salicylates < 1.0 (<20) mg/dL U Opiates 300ng/mL cut (Negative) Ur Oxycodone Screen (Negative) Urine Methadone Screen (Negative) Acetaminophen < 10 L (10-30) ug/mL Ur Barbiturates Screen (Negative) U Tricyclic Antidepress (Negative) Ur Phencyclidine Scrn (Negative) Ur Amphetamines Screen (Negative) U Methamphetamines Scrn (Negative) Ur MDMA Scrn (Ecstasy) (Negative) U Benzodiazepines Scrn (Negative) Urine Cocaine Screen (Negative) U Marijuana (THC) Screen (Negative) Ethyl Alcohol < 10 ( - 10) mg/dL SARS-CoV-2 (PCR) (Negative) 09/15/21 09/15/21 Range/Units 14:00 14:00 WBC (4.5-11.0) X10^3/uL RBC (4.5-5.9) X10^6/uL Hgb (13.5-17.5) g/dL Hct (41-53) % MCV (80-100) fL MCH (26-34) PG MCHC (30-36) % RDW (11.6-14.8) % Plt Count (150-400) X10^3/uL Neut % (Auto) (50-75) % Lymph % (Auto) (25-40) % [place] % (Auto) (3-14) % Eos % (Auto) (2-4) % Baso % (Auto) (0-2) % Neut # (Auto) (9833-8542) /uL Lymph # (Auto) (7516-9386) /uL [place] # (Auto) (0-900) /uL Eos # (Auto) (0-450) /uL Baso # (Auto) (0-100) /uL RBC Morphology Hypochromasia Poikilocytosis Microcytosis Target Cells Schistocytes Sodium (137-145) mmol/L Potassium (3.4-5.1) mmol/L Chloride (98-107) mmol/L Carbon Dioxide (22-32) mmol/L BUN (9-20) mg/dL Creatinine (0.66-1.25) mg/dL Estimated GFR (>60) mL/min BUN/Creatinine Ratio (6-22) Glucose (70-100) mg/dL Calcium (8.4-10.2) mg/dL Total Bilirubin (0.2-1.3) mg/dL AST (17-59) IU/L ALT (<50) IU/L Alkaline Phosphatase (38-126) U/L Total Protein (6.3-8.2) g/dL Albumin (3.5-5.0) g/dL Globulin (1.7-4.1) g/dL Albumin/Globulin Ratio (1.0-2.8) TSH (0.47-4.68) uIU/mL Free T4 (0.78-2.19) ng/dL Salicylates (<20) mg/dL U Opiates 300ng/mL cut Negative (Negative) Ur Oxycodone Screen Negative (Negative) Urine Methadone Screen Negative (Negative) Acetaminophen (10-30) ug/mL Ur Barbiturates Screen Negative (Negative) U Tricyclic Antidepress Negative (Negative) Ur Phencyclidine Scrn Negative (Negative) Ur Amphetamines Screen Positive H (Negative) U Methamphetamines Scrn Positive H (Negative) Ur MDMA Scrn (Ecstasy) Negative (Negative) U Benzodiazepines Scrn Negative (Negative) Urine Cocaine Screen Negative (Negative) U Marijuana (THC) Screen Negative (Negative) Ethyl Alcohol ( - 10) mg/dL SARS-CoV-2 (PCR) Negative (Negative) Urine Dip Bedside Urine Glucose Negative Bedside Urine Bilirubin - Negative Bedside Urine Ketone - Negative Urine Specific [place] 1.030 Bedside Urine Occult Blood - Negative Bedside Urine pH 6 Bedside Urine Protein - Negative Bedside Urine Urobilinogen - Negative Bedside Urine Nitrite - Negative Bedside Urine Leukocytes - Negative Esterase MDM Narrative Medical decision making narrative: Patient has had multiple repeat visits. He has been evaluated by social Work. Fortunately social work has found him placement. Transfer has been arranged. Discharge Plan Departure Patient Disposition: Xfer Psychiatric Hosp Clinical Impression: Suicidal ideation Prescriptions: No Action quetiapine 100 mg Tablet 100 mg PO QPM 0RF pantoprazole 40 mg Tablet,Delayed Release (Dr/Ec) 40 mg PO BID 0RF ferrous sulfate [FeroSul] 325 mg (65 mg iron) Tablet 325 mg PO DAILY 0RF
[2021-09-15 15:15] LABS: Free T4, Direct Thyroxine 1.34 ng/dL (0.78-2.19)
[2021-09-15 15:29] LABS: Thyroid Stimulating Hormone 1.23 uIU/mL (0.47-4.68)
[2021-09-15 15:32] LABS: Hypochromasia 2+; Microcytosis 3+; Target Cells 1+
[2021-09-15 15:34] LABS: Poikilocytosis 2+; Schistocytes 2+
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
--- NOTE | 2021-09-15 17:10 | CM.SWNOTE ---
Addendum entered by Xenia Bowers 09/15/21 18:48: ADHESIVE BONDING MACHINE OPERATOR Note Patient is accepted at [facility] with an ETA time of 2200. ADHESIVE BONDING MACHINE OPERATOR contacts [facility] using patient's Medicaid transportation services and schedules worm picker time of around 2100 for patient. Plan: Patient to transfer to [facility] this evening via medicaid taxi. SAULO Leo Original Note: ADHESIVE BONDING MACHINE OPERATOR Note ADHESIVE BONDING MACHINE OPERATOR calls [facility] for bed census. ADHESIVE BONDING MACHINE OPERATOR calls [facility] and it is reported that they only have 1 female bed but there is a potential d/c and may have male voluntary beds tomorrow. ADHESIVE BONDING MACHINE OPERATOR calls [facility] and it is reported that they have no beds but will call ADHESIVE BONDING MACHINE OPERATOR back if that changes. ADHESIVE BONDING MACHINE OPERATOR calls [facility] and ADHESIVE BONDING MACHINE OPERATOR reviews patient over the phone and intake declines patient due to patient' sex offender statues. ADHESIVE BONDING MACHINE OPERATOR reviews patient's records from patient ED encounter at [facility] in [place], patient was d/c to the community after inpatient placement and crisis center search. ADHESIVE BONDING MACHINE OPERATOR informs patient of placement difficulties. ADHESIVE BONDING MACHINE OPERATOR calls [facility] for patient intake and patient participates in intake screening. ADHESIVE BONDING MACHINE OPERATOR faxes clinicals for review. Plan: continue to f/u with [facility] for placement. SAULO Leo
--- NOTE | 2021-09-15 18:49 | PC.NURSE ---
Pt sleeping. Resp even and unlabored
--- NOTE | 2021-09-15 20:30 | PC.NURSE ---
Pt gotten up and dressed. Given all belongings from lockers. Prepared to take transportation to [facility]
[2021-09-15 20:36] VITALS: BP 122/68; PULSE 60; RESP 18; O2SAT 100
== END 2021-09-15 21:40 ==
PROVIDERS: Emergency Provider Emergency Medicine
DX: R45.851 Suicidal ideations (principal); F17.290 Nicotine dependence, other tobacco product, uncomplicated; Z20.822 Contact with and (suspected) exposure to COVID-19
CPT/HCPCS: 36415; 80053; 80305; 80320; 80329; 81003; 84439; 84443; 85025; 87635; 99283; 99284; C9803; G0480